=== PATIENT | male | born 1980 | race Caucasian/White ===

== ENCOUNTER 2018-09-13 13:23 | Emergency (ER) | payer MEDICAID ==
[2018-09-13 13:35] VITALS: BP 136/81
--- NOTE | 2018-09-13 13:55 | ED Physician Documentation ---
PD HPI LOWER EXT INJURY - Stated complaint Stated Complaint: - Chief complaint Chief Complaint: Ext Problem - History obtained from History obtained from: Patient - History of Present Illness PD HPI LOW EXT INJURY LOCATION: Right, Knee Type of injury: No: Fall, Twist (no abrupt injury. 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 Has noted onset of knee pain around kneecap that has persisted for few weeks. Worse after resting and feels stiff. Sore in mornings, but improves some during day.) Where injury occurred: Work Timing - onset: How many weeks ago Timing - duration: Weeks Timing - details: Gradual onset, Still present (worse the past week, causing him to not sleep well due to the pain.), Waxing and waning Worsened by: Moving, Palpating (upper patellar area) Associated symptoms: No: Weakness, Numbness, Swelling, Discolored Similar symptoms before: Has not had sx before Recently seen: Not recently seen Review of Systems Constitutional: denies: Fever, Chills, Myalgias Nose: denies: Rhinorrhea / runny nose, Congestion Throat: denies: Sore throat Respiratory: denies: Cough GI: denies: Nausea, Vomiting, Diarrhea Skin: denies: Rash, Lesions PD PAST MEDICAL HISTORY - Past Medical History Cardiovascular: Other Musculoskeletal: None - Past Surgical History Past Surgical History: No - Present Medications Home Medications: Ambulatory Orders Medication Instructions Recorded Confirmed Dexamethasone [Decadron] 4 mg PO DAILY #5 tablet 09/13/18 Hydrocodone/Acetaminophen [Seco 1 each PO Q6H PRN #15 tablet 09/13/18 5-325 Tablet] RX: Naproxen 500 mg PO BID #20 tablet 09/13/18 - Allergies Allergies/Adverse Reactions: Allergies Allergy/AdvReac Type Severity Reaction Status Date / Time No Known Drug Allergies Allergy Verified 09/13/18 13:35 - Social History Does the pt smoke?: Yes Smoking Status: Current every day smoker Does the pt drink ETOH?: Yes Does the pt have substance abuse?: Yes - Immunizations Immunizations are current?: Yes PD ED PE NORMAL - Vitals Vital signs reviewed: Yes - General General: Alert and oriented X 3, No acute distress, Well developed/nourished - Derm Derm: Normal color, Warm and dry - Extremities Extremities: No edema, No calf tenderness / cord, Other (right knee with focal tenderness suprapatellar area medially, without redness nor sores. there is fine crepitance with flex/ext at the knee c/w tendonitis. No effusion of the knee. Ligament testing without pain nor laxity. Apley type maneuver does not cause pain and no clicking. ) - Neuro Neuro: No motor deficit, No sensory deficit Results - Vitals Vitals: Vital Signs - 24 hr 09/13/18 13:33 Temperature 36.4 C L Heart Rate 96 Respiratory 20 Rate Blood Pressure 136/81 H O2 Saturation 98 Oxygen O2 Source Room air - Labs Labs: Laboratory Tests 09/13/18 14:47 POC Whole Bld Glucose 106 H PD MEDICAL DECISION MAKING - ED course Complexity details: considered differential (no effusion and ligament testing is good. ROM of the knee, mainly flex/ext at knee, has some crepitance upper patellar area c/w tendonitis. I would not see any value in xrays without abrupt injury. ), d/w patient Departure - Departure Disposition: 01 Home, Self Care Clinical Impression: Knee tendonitis Condition: Stable Record reviewed to determine appropriate education?: Yes Instructions: Kneecap Probs Common Follow-Up: [facility] [Provider Group] Prescriptions: Dexamethasone [Decadron] 4 mg PO DAILY #5 tablet Hydrocodone/Acetaminophen [Seco 5-325 Tablet] 1 each PO Q6H PRN #15 tablet PRN Reason: Pain RX: Naproxen 500 mg PO BID #20 tablet Comments: Use the knee brace when up and around and working to help stabilize the knee and support it. He can have it off when rested. Gentle range of motion to the knee several times throughout the day. This seems like a tendinitis of the muscles and tendons attaching to the kneecap and some inflammation under the kneecap. This typically will improve with being ice to the knee as well as some anti- inflammatories. We will prescribe naproxen and Decadron as anti-inflammatories. Add Tylenol or hydrocodone if needed for pain. Follow-up if not better over the next week or two. Discharge Date/Time: 09/13/18 15:09
[2018-09-13] MEDS ORDERED: DEXAMETHASONE 10 MG/ML VIAL PO STA (14:35)
[2018-09-13] MEDS ORDERED: NAPROXEN 250 MG TABLET PO STA (14:35)
[2018-09-13] MEDS ORDERED: HYDROcod/ACETAM 5/325 MG TABLET PO STA (14:35)
== END 2018-09-13 15:09 | disposition home or self-care (01) ==
LOC: ED 13:23
DX: M76.9 Unspecified enthesopathy, lower limb, excluding foot (principal); F17.200 Nicotine dependence, unspecified, uncomplicated
CPT/HCPCS: 99283; A9270

== ENCOUNTER 2023-07-03 17:37 | Outpatient (CLI) | payer MEDICAID ==
--- NOTE | 2023-07-04 19:01 | XRAY Report ---
PROCEDURE: Chest 2 View X-Ray INDICATIONS: ACUTE COUGH TECHNIQUE: 2 views of the chest were obtained. COMPARISON: None. FINDINGS: Surgical changes and devices: None. Lungs and pleura: No pleural effusions or pneumothorax. Lungs are clear. Mediastinum: Mediastinal contours appear normal. Heart size is normal. Bones and chest wall: No suspicious bony lesions. Overlying soft tissues appear unremarkable. IMPRESSION: Normal two-view chest x-ray Reviewed by: Eleuterio Baer MD on 07/04/2023 6:00 PM [facility] Approved by: Eleuterio Baer MD on 07/04/2023 6:00 PM [facility] Station ID: [id number]
== END 2023-07-03 23:59 | disposition home or self-care (01) ==
LOC: DI.S 17:37
PROVIDERS: ATTEND Registered Nurse
DX: R05.1 Acute cough (principal)

== ENCOUNTER 2023-09-16 01:38 | Outpatient (CLI) | payer MEDICAID | END 2023-09-16 23:59 | disposition left against medical advice (07) | LOC: EMS 01:38 | DX: T40.411A Poisoning by fentanyl or fentanyl analogs, accidental (unintentional), initial encounter (principal) ==

== ENCOUNTER 2023-10-21 08:00 | Outpatient (CLI) | payer MEDICAID ==
[2023-10-21 23:01] LABS: CHLAMYDIA TRACHOMATIS DNA NEGATIVE (NEGATIVE); NEISSERIA GONORRHOEAE DNA NEGATIVE (NEGATIVE); TRICHOMONAS VAGINALIS DNA NEGATIVE (NEGATIVE)
== END 2023-10-21 23:59 | disposition home or self-care (01) ==
LOC: LAB.S 08:00
PROVIDERS: ATTEND Emergency Medicine
DX: Z72.51 High risk heterosexual behavior (principal)
CPT/HCPCS: 87491; 87591; 87661

== ENCOUNTER 2024-01-20 19:25 | Emergency (ER) | payer MEDICAID ==
[2024-01-20 19:44] VITALS: BP 151/63; O2SAT 100
--- NOTE | 2024-01-20 21:38 | ED Physician Documentation ---
PD HPI SKIN - Stated complaint Stated Complaint: LUMP UNDER LT ARMPIT - Chief complaint Chief Complaint: Wound - History obtained from History obtained from: Patient - Additional information Additional information: The patient comes to the emergency department chief complaint of "boil" in his armpit. The patient states that he has had this a number of times before. He feels as though the pocket goes all the way down into his chest and up into his upper arm. No fevers or chills. He has 2 foci of swelling and 1 has been draining. He states he cut it open himself. No other complaints at this time. PD PAST MEDICAL HISTORY - Past Medical History Past Medical History: No Cardiovascular: Other Musculoskeletal: None - Past Surgical History Past Surgical History: No - Present Medications Home Medications: Ambulatory Orders Medication Instructions Recorded Confirmed Doxycycline [Vibramycin] 100 mg PO BID #14 tablet 01/20/24 HYDROcod/ACETAM 5/325 [Tarrs 5/325] 1 - 2 tablet PO Q6H PRN #4 tablet 01/20/24 - Allergies Allergies/Adverse Reactions: Allergies Allergy/AdvReac Type Severity Reaction Status Date / Time No Known Drug Allergies Allergy Verified 01/20/24 19:44 - Social History Does the pt smoke?: Yes Smoking Status: Current every day smoker Does the pt drink ETOH?: Yes Does the pt have substance abuse?: Yes - Immunizations Immunizations are current?: Yes PD ED PE NORMAL - Vitals Vital signs reviewed: Yes - General General: Alert and oriented X 3, No acute distress, Well developed/nourished - HEENT HEENT: Atraumatic, EOMI, Moist mucous membranes - Neck Neck: Supple, no meningeal sign - Cardiac Cardiac: RRR, No murmur - Respiratory Respiratory: No respiratory distress, Clear bilaterally - Derm Derm: Warm and dry, Other (2 small, approximately 1.5 cm diameter, areas of swelling and mass directly adjacent to 1 another in left axilla. 1 has an apical wound which appears to access the deeper cavity, but without any expressible drainage. The other is mildly fluctuant with a small pustule at the apex. ) - Extremities Extremities: No deformity - Neuro Neuro: Other (Alert, grossly oriented) - Psych Psych: Normal mood, Normal affect - Free text exam Free text exam: Skin/axillary exam continued: No palpable edema, induration, or fluctuance extending beyond the immediate area of the masses. Chronic appearing scarring and evidence of prior I&D. Results - Vitals Vitals: Oxygen O2 Source Room air Procedures - Abscess I&D (location) Left axilla Preparation: Betadine, Lidocaine 1% Incision: Incised with scalpel, Irrigated, Other (Minimal purulent drainage with Mainly bloody output. Bleeding controlled. No further drainage expressed.) Other: Pt tolerated well, Dressing applied, Antibiotic prescribed PD Medical Decision Making - ED course Complexity details: considered differential, d/w patient ED course: I did I&D the mass that did not have a wound at the apex, and not much in the way of purulence came out. I was able to probe the cavity with my small finger and still did not obtain any purulent drainage, so the area was dressed and I did start antibiotics. I discussed wound care with the patient as well as usual indications for return and follow-up. Departure - Departure Disposition: 01 Home, Self Care Clinical Impression: Abscess Condition: Stable Instructions: ED Abscess IandD Prescriptions: HYDROcod/ACETAM 5/325 [Tarrs 5/325] 1 - 2 tablet PO Q6H PRN #4 tablet PRN Reason: Pain Doxycycline [Vibramycin] 100 mg PO BID #14 tablet Comments: You have been started on antibiotics tonight. Please pick the remainder of your antibiotics up at [facility] tomorrow morning. You have been given a pain pill tonight, so please do not drive for the next 8 hours. Forms: PCP List Discharge Date/Time: 01/20/24 22:41
[2024-01-20] MEDS: HYDROcod/ACETAM 5/325 MG TABLET PO STA (21:56)
[2024-01-20] MEDS: DOXYCYCLINE 100 MG TABLET PO STA (21:57)
== END 2024-01-20 22:41 | disposition home or self-care (01) ==
LOC: ED 19:25
DX: L02.412 Cutaneous abscess of left axilla (principal)
CPT/HCPCS: 10060; 99283; A9270